=== PATIENT | female | born 1995 | race Caucasian/White ===

== ENCOUNTER 2016-08-10 08:57 | Emergency (ER) | payer OTHER ==
[~2016-08-10] VITALS: Ht 154.9 cm; Wt 104.0 kg
[~2016-08-10 08:57] MED LIST: PROVENTIL,2.5 MG/3 M IH; SUDOGEST30 MG PO
[2016-08-10] MEDS ORDERED: LORATADINE10 M2 PO (09:21)
[2016-08-10] MEDS ORDERED: SERTRALINE HCL50 MG PO (09:21)
[2016-08-10 11:32] LABS: EOSINOPHIL (%) 1.2 % (0-5); EOSINOPHIL COUNT 0.1 K/uL (0-0.3); HEMATOCRIT 41.7 % (36.0-46.0); IMMATURE GRANULOCYTE (%) 0.1 % (0.0-0.7); IMMATURE GRANULOCYTE COUNT 0.1 K/uL; LYMPHOCYTE COUNT 0.6 K/uL (1.0-2.8); MCH 26.9 PG (29.0-34.0); MCHC 31.7 G/DL (30.0-36.0); MCV 85.1 FL (83-99); MEAN PLAT.VOLUME 10.3 uM^3 (9.5-12.4); MONOCYTE (%) 5.1 % (3-12); MONOCYTE COUNT 0.4 K/uL (0-0.8); NEUTROPHIL (%) 86.8 % (45-76); NEUTROPHIL COUNT 7.4 K/uL (1.8-6.4); PLATELET COUNT 279 K/uL (156-360); RBC DIS.WIDTH-SD 43.3 % (39-53); WHITE BLOOD COUNT 8.5 K/uL (4.1-10.2)
[2016-08-10 11:42] LABS: CHLORIDE 107 mEq/L (99-109); POTASSIUM 3.9 mEq/L (3.7-5.4); SODIUM 140 mEq/L (136-147)
[2016-08-10 11:44] LABS: GLUCOSE 82 mg/dL (70-99)
[2016-08-10 11:46] LABS: ANION GAP 10 MEQ/L (2-14)
[2016-08-10 11:48] LABS: GFR ESTIMATE (CALCULATED) > 59 mL/min/
[2016-08-10 11:49] LABS: UREA NITROGEN (BUN) 13 mg/dL (9-23)
[2016-08-10] MEDS ORDERED: BENTYL20 MG PO (12:19)
[2016-08-10] MEDS ORDERED: IMODIUM MS REL1 EACH PO (12:19)
[2016-08-10] MEDS ORDERED: ZOFRAN ODT4 MG PO (12:19)
[2016-08-10 12:26] VITALS: BP 123/76
== END 2016-08-10 12:28 | disposition home or self-care (01) ==
LOC: EME 08:57
PROVIDERS: Emergency Medicine
DX: R11.2 Nausea with vomiting, unspecified (principal); R19.7 Diarrhea, unspecified
CPT/HCPCS: 80048; 85025; 87493; 99281; 99285; J2405; J7030

== ENCOUNTER 2016-09-02 17:07 | Emergency (ER) | payer OTHER ==
[~2016-09-02] VITALS: Ht 154.9 cm; Wt 108.0 kg
[~2016-09-02 17:07] MED LIST changes: +BENTYL20 MG PO; +IMODIUM MS REL1 EACH PO; +LORATADINE10 M2 PO; +SERTRALINE HCL50 MG PO; +ZOFRAN ODT4 MG PO
[2016-09-02] MEDS ORDERED: NAPROSYN500 MG PO (18:45)
[2016-09-02 18:57] VITALS: BP 113/61
== END 2016-09-02 18:59 | disposition home or self-care (01) ==
LOC: EME 17:07
DX: S00.33XA Contusion of nose, initial encounter (principal); W21.02XA Struck by soccer ball, initial encounter
CPT/HCPCS: 70160; 99281; 99283